=== PATIENT | female | born 1985 ===

== ENCOUNTER 2016-06-26 18:58 | Emergency (ER) | payer OTHER ==
[~2016-06-26] VITALS: Ht 157.5 cm; Wt 92.7 kg
[2016-06-26 19:11] VITALS: BP 136/93; PULSE 116; RESP 18; TEMP 98.2; O2SAT 99
[2016-06-26] MEDS ORDERED: MEGE40TA PO (19:22)
[2016-06-26] MEDS ORDERED: METF500T PO (19:22)
[2016-06-26] MEDS ORDERED: ROBA750T PO (19:57)
[2016-06-26] MEDS ORDERED: IBUP800T23 PO (19:57)
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
[2016-06-26 20:00] VITALS: PULSE 108
[2016-06-26] MEDS ORDERED: ORPHENADRINE INJ 60 MG/2 ML AMP IM ONE (20:00)
== END 2016-06-26 20:36 | disposition home or self-care (01) ==
LOC: PHEFT 18:58
DX: S29.012A Strain of muscle and tendon of back wall of thorax, initial encounter (principal); M25.511 Pain in right shoulder; V49.40XA Driver injured in collision with unspecified motor vehicles in traffic accident, initial encounter
CPT/HCPCS: 96372; 99283; J2360

== ENCOUNTER → 2016-07-26 | Day surgery (SDC) | payer OTHER ==
--- NOTE | 2016-07-21 11:36 | TH ---
cc: ISABEL LUA DATE 07/25/2016 DATE OF 1985 SCHEDULED PROCEDURE Hysteroscopy and MyoSure INDICATIONS Severe cramping and menometrorrhagia in a young woman desiring to maintain fertility. HISTORY OF PRESENT ILLNESS The patient is a very pleasant 31-year-old recently female nulligravida who has been having unacceptable bleeding and cramping. 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 She is also on metformin for PCOS. She has no other chronic or systemic illnesses. She does not smoke, drink or use illicit drugs. Her cramping has become unacceptable recently and she bled throughout her wedding weekend which was very frustrating. Endometrial biopsy done in my office showed no hyperplasia or carcinoma and lab work was reassuring, however I am repeating her H&H since she has been bleeding so heavily recently. PHYSICAL EXAM On physical exam, she is a mildly overweight female, but in no acute distress. NECK: She has no thyroid enlargement. LUNGS: Her lungs are clear to auscultation. HEART: Her heart rate and rhythm are regular without murmur, heave or thrills. ABDOMEN: Benign. PELVIC: Perineum is estrogenized, vault is elevated, cervix is nulliparous. There is no significant blood in the vault today. Uterus is position not enlarged. Ovaries are not palpable. EXTREMITIES: Unremarkable. She does not have any abnormal hair growth, oily skin or pigment changes. IMPRESSION Dysmenorrhea and uterine cramping with menorrhagia in a young woman who is mildly overweight with a history of PCOS. PLAN Proceed with MyoSure next week. She still has some Lysteda as she did not take more than one day of it. She was reassured today and she is going to skip her preop on Sunday as we got everything done today. The risks, benefits and expectations have been reviewed and she has signed consents and is scheduled for her procedure. MD TOMY Cyr/DEWEY /11:19 AM 11:26 AM
[~2016-07-26] MED LIST: IBUP800T23 PO; KETOROLAC TROMETHAMINE 30 MG/ML (IVP) VIAL IV PUSH ONE; LACTATED RINGER'S 1000 ML INJ 1,000 ML ONE; MEGE40TA PO; METF500T PO; MIDAZOLAM HCL 2 MG/2 ML VIAL ONE; ONDANSETRON HCL 4 MG/2 ML VIAL IV PUSH ONE; PROPOFOL 200 MG/20 ML AMP IV ONE; ROBA750T PO; ceFAZolin INJ 1,000 MG VIAL ONE
--- NOTE | 2016-07-28 07:35 | TN ---
cc: BRITTANY LUA DATE OF SURGERY 07/26/2016 DATE OF 1985 PREOPERATIVE DIAGNOSIS Severe menorrhagia, history of Megace use, history of simple hyperplasia with followup negative biopsy. POSTOPERATIVE DIAGNOSIS Copious tissue in the intrauterine cavity of several different types, pathology pending. 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 The cervix was nulliparous and soft, easily dilated and the uterus sounded to 14. Upon entering the hysteroscope, copious areas of polyps in clusters were noted and too small submucosal fibroids on her left. Throughout the endometrial cavity as was tissue that looked like it had significant progestational effect. The amount of tissue removed by the end of the case was very significant. At the end of the case, there was no bleeding. There was no iatrogenic injury. The intrauterine cavity was essentially cleaned of all tissue and she was placed in the dorsal supine position and awoken and taken to the recovery room. PROCEDURE The patient was identified as Leslee Schaefer. Her permit was reevaluated with her. She was taken to the operating room, prepped and draped in the usual sterile fashion in the dorsal lithotomy position. A time-out was performed with all in attendance. She was straight cathed after she was prepped and draped and then a speculum placed. The cervix grasped with a tenaculum, gently sounded to 14 and then gently dilated to allow the passage of the MyoSure hysteroscope initial evaluation was difficult due to the size of the uterus and the need for additional pressure. Once the MyoSure was in place, visualization was appropriate to allow us to discern multiple grape-like polyps throughout the entire cavity, two small submucosal fibroids that were not so much visualize, but had a different feeling as the MyoSure removed those and just fluffy white tissue that looked like a progestational effect throughout the entire cavity. All of this was removed in systematic fashion. Deficit was 1700. There is no significant bleeding at the end of the case. The instrumentation was removed. She was placed in dorsal supine position, awoken and taken to the recovery room in stable condition. MD TOMY Cyr/DJL /1:27 PM /7:30 AM
== END | disposition home or self-care (01) ==
LOC: ESDC 10:05
PROVIDERS: ATTEND Obstetrics & Gynecology
DX: N92.0 Excessive and frequent menstruation with regular cycle (principal); N94.6 Dysmenorrhea, unspecified; E28.2 Polycystic ovarian syndrome; D25.0 Submucous leiomyoma of uterus
CPT/HCPCS: 00952; 58561; 88305; J0690; J1885; J2250; J2405; J3010; J7120